=== PATIENT | male | born 1950 | race Caucasian/White ===

== ENCOUNTER 2017-10-07 20:33 | Inpatient (IN) ==
--- NOTE | 2017-10-07 21:05 | Emergency Department Note ---
START Narrative - START START: I examined this patient and my medical decision-making was reviewed with the Resident Physician. I agree with the documented findings, disposition and treatment plan as described except to the extent set forth below. 67-year-old male presents to the ER from the [place] urgent care for concerns for an EKG abnormality. Patient was sitting at home eating eggs and qureshi and potatoes when he was having some abdominal pain. States the pain left him to where he thought he was going to pass out. He had associated nausea and. No vomiting. States he felt like he was given throw up. Patient which the [place] and they noticed heart rate to be in the 30s and he did state that he felt extremely weak and horrible at that time. His EKG is concerning for a Mobitz type II possibility. I feel it best that we should admit him to the hospital and have a cardiac consult done. Patient seems to be back to his baseline now. He has no further abdominal pain. In fact he states most the pain in his abdomen went away after getting to the urgent care. He has no abdominal pain whatsoever at this time. He has no documented history of any gallstone problems. Denies any diarrhea. No fevers or chills.
[2017-10-07 21:23] LABS: Basophils # 0.1 K/mcL (0.0-0.2); Basophils % 0.8 %; Eosinophils # 0.1 K/mcL (0.0-0.6); Eosinophils % 0.9 %; Hematocrit 43.9 % (37.5-50.1); Hemoglobin 15.4 g/dL (12.9-16.9); Immature Granulocytes % 0.3 % (0-4); Lymphocytes # 1.1 K/mcL (0.6-4.6); Lymphocytes % 17.9 %; Mean Corpuscular HGB Conc 35.1 g/dL (31.6-35.5); Mean Corpuscular Hemoglobin 32.4 pg (28.0-33.3); Mean Corpuscular Volume 92.4 fL (83.0-100.0); Monocytes # 0.4 K/mcL (0.0-1.3); Monocytes % 6.8 %; Neutrophils # 4.7 K/mcL (1.6-8.9); Platelet Count 144 K/mcL (140-400); Red Blood Count 4.75 M/mcL (4.19-5.50); Segmented Neutrophils % 73.3 %
[2017-10-07 21:39] LABS: Alanine Aminotransferase 15 Units/L (7-52); Albumin 4.2 g/dL (3.5-5.7); Albumin/Globulin Ratio 1.4 (1.1-2.2); Alkaline Phosphatase 46 Units/L (34-104); Aspartate Amino Transferase 28 Units/L (13-39); BUN/Creatinine Ratio 17 (6-26); Bilirubin,Direct 0.1 mg/dL (0.0-0.2); Bilirubin,Indirect 0.4 mg/dL (0.0-1.2); Bilirubin,Total 0.5 mg/dL (0.3-1.0); Blood Urea Nitrogen 17 mg/dL (8-23); Calcium 9.9 mg/dL (8.6-10.3); Carbon Dioxide 32 mEq/L (23-29); Chloride 106 mEq/L (98-107); Globulin 2.9 g/dL (2.4-3.5); Glucose 164 mg/dL (70-105); Lipase 53 Units/L (11-82); Osmolality,Calculated 295 (280-300); Potassium 4.5 mEq/L (3.5-5.1); Sodium 140 mEq/L (136-145); Total Protein 7.1 g/dL (6.4-8.9); eGFR For African Americans > 60 (> 60); eGFR For Non-African Americans > 60 (> 60)
--- NOTE | 2017-10-07 22:07 | Emergency Department Note ---
Disposition Clinical Impression: Bradycardia Disposition: Admitted As Inpatient Condition: Good Referrals: NONE,PCP [Primary Care Provider] - Forms: ED Satisfaction Letter, Work/School Release Time of Disposition: 22:07 General Adult HPI - General Chief complaint: ED General Medical Stated complaint: IRREGULAR HR Time Seen by Provider: 10/07/17 20:37 Source: patient Mode of arrival: EMS Limitations: no limitations Nursing Notes Reviewed: Yes Vital Signs Reviewed: Yes - History of Present Illness HPI Narrative: Patient is a 67-year-old male with a history of a heart catheter done in 2003 that showed no blockage at that time and tachycardia which is treated with atenolol presenting to the emergency department from the urgent care [place] for bradycardia and abdominal pain. The patient was sitting at home this evening with his he finished eating his meal and he experienced intense sharp stabbing abdominal pain that caused him to become profusely sweaty and nauseous. At that time the patient is drove him to the [place] urgent care which is found to be bradycardic in the 30s. The patient was then transferred to a [place]. On arrival to the emergency department here the patient is a symptomatically his symptoms had resolved. Patient denies any chest pain, shortness of breath, vomiting, abdominal pain at this time, nausea, vomiting, diarrhea. Pain Scale: 0 - Related Data Home Medications Medication Instructions Recorded Confirmed Acetaminophen [Tylenol] 1,000 mg PO Q12H MDD 3 gm 10/07/17 10/07/17 Atenolol [Tenormin] 50 mg PO BID 10/07/17 10/07/17 Cholecalciferol (D-3) [Vitamin D] 2,000 unit PO DAILY 10/07/17 10/07/17 Dicyclomine [Bentyl] 10 mg PO QID 10/07/17 10/07/17 Fluticasone Propionate Nasal 50 mcg NS DAILY 10/07/17 10/07/17 [Flonase] Hydrocortisone 2.5% CREAM [Cortaid] 1 appl TP BID PRN 10/07/17 10/07/17 Ranitidine HCl [Zantac] 150 mg PO BID 10/07/17 10/07/17 Sildenafil Citrate [Viagra] 50 mg PO AD PRN 10/07/17 10/07/17 Simvastatin [Zocor] 20 mg PO HS 10/07/17 10/07/17 Terbinafine HCl [Terbinafine] 1 appl TP BID PRN 10/07/17 10/07/17 Valproic Acid 500 mg PO BID 10/07/17 10/07/17 diazePAM [Valium] 5 mg PO BID PRN 10/07/17 10/07/17 Allergies Allergy/AdvReac Type Severity Reaction Status Date / Time epinephrine AdvReac See Verified 10/07/17 21:43 Comments All systems ED: reviewed and negative except as stated. Constitutional: Denies: fever, chills ENT ED: Denies: throat pain, congestion Cardiovascular: Denies: chest pain, palpitations, dyspnea on exertion, syncope, paroxysmal nocturnal dyspnea Respiratory: Denies: cough, dyspnea, wheezes Gastrointestinal: Reports: abdominal pain, nausea. Denies: vomiting, diarrhea, constipation, hematemesis, melena, hematochezia Genitourinary: Denies: urgency Musculoskeletal: Denies: back pain, neck pain Integumentary: Denies: rash, abrasion Neurological: Denies: headache, weakness Past Medical History - Past Medical History Attestation: Yes The following information was validated with the patient. Medical history: Reports: GERD, hyperlipidemia, hypertension, myocardial infarction Psychiatric history: Reports: anxiety, depression, PTSD - Social History Smoking Status: Current every day smoker Smokeless Tobacco Status: No Alcohol use: Reports: occasionally Drug use: Reports: none Physical Exam CONSTITUTIONAL: Well-appearing; well-nourished; A&O X 3, in no apparent distress. Patient's vital signs are currently stable his heart rate is in the 70s, blood pressure is 110s/80s. Patient currently has transcutaneous spacer pads on his on cardiac monitoring. HEAD: Normocephalic; atraumatic EYES: PERRL, no scleral icterus NOSE: The nose is normal in appearance without rhinorrhea NECK: No JVD or distended neck veins RESP: Normal chest excursion with respiration; breath sounds clear and equal bilaterally; no wheezes, rhonchi, or rales CARD: Regular rhythm, without murmurs, rub or gallop ABD: Non-distended; non-tender, soft, without rigidity, rebound or guarding,no pulsatile mass CHEST: No pain with palpation SKIN: Normal for age and race; warm and dry without diaphoresis ; no apparent lesions EXTREMITIES: Pulses are 2 plus and equal times 4 extremities, no peripheral edema or calf muscle pain - General Limitations: no limitations General appearance: alert, in no apparent distress Course Course Narrative: The patient is presenting to the emergency department with the complaint of bradycardia that occurred after a sudden sharp stabbing epigastric abdominal pain. At this time the patient is asymptomatic and he states that his symptoms have completely resolved. His vital signs are stable in the room, however transcutaneous pacer pads have been applied to the patient's chest. The patient 's EKG shows a possible Mobitz type II degree heart block appears to be dropping a third beat. I discussed this patient's case with she states there is no further mention needed at this time they will see the patient and patient in the morning. Patient was accepted to the hospital by Dr. Guerrero. His lab work was essentially unremarkable and chest x-ray was negative. - Reevaluation(s) Reevaluation #1: Dr. Guerrero and Dr. Zacarias consulted. Time: 22:06 Vital Signs Temperature 97.5 F L 10/07/17 20:35 Pulse Rate 71 10/07/17 20:35 Respiratory Rate 22 10/07/17 20:35 Blood Pressure 111/80 10/07/17 20:35 O2 Sat by Pulse Oximetry 92 10/07/17 20:35 Temperature 97.5 F L 10/07/17 20:35 Pulse Rate 61 10/07/17 23:10 Respiratory Rate 18 10/07/17 23:10 Blood Pressure 121/63 10/07/17 23:10 O2 Sat by Pulse Oximetry 97 10/07/17 23:10 Oxygen Delivery Oxygen Delivery Room Air Medical Decision Making - Medical Records Medical records reviewed: Yes I reviewed the patient's medical records. - Lab Data Lab results reviewed: Yes I reviewed the patient's lab results. Result diagrams: 10/07/17 21:07 10/07/17 21:07 Lab Results 10/07/17 10/07/17 10/07/17 Range/Units 21:07 21:07 21:07 WBC 6.4 (4.3-11.1) K/mcL RBC 4.75 (4.19-5.50) M/mcL Hgb 15.4 (12.9-16.9) g/dL Hct 43.9 (37.5-50.1) % MCV 92.4 (83.0-100.0) fL MCH 32.4 (28.0-33.3) pg MCHC 35.1 (31.6-35.5) g/dL RDW 12.0 (11.5-14.5) % Plt Count 144 (140-400) K/mcL MPV 10.0 (9.4-12.4) fL Immature Gran % 0.3 (0-4) % Seg Neutrophils % 73.3 % Lymphocytes % 17.9 % Monocytes % 6.8 % Eosinophils % 0.9 % Basophils % 0.8 % Neutrophils # 4.7 (1.6-8.9) K/mcL Lymphocytes # 1.1 (0.6-4.6) K/mcL Monocytes # 0.4 (0.0-1.3) K/mcL Eosinophils # 0.1 (0.0-0.6) K/mcL Basophils # 0.1 (0.0-0.2) K/mcL Sodium 140 (136-145) mEq/L Potassium 4.5 (3.5-5.1) mEq/L Chloride 106 (98-107) mEq/L Carbon Dioxide 32 H (23-29) mEq/L BUN 17 (8-23) mg/dL Creatinine 1.03 (0.70-1.30) mg/dL Est GFR ( Amer) > 60 (> 60) Est GFR (Non-Af Amer) > 60 (> 60) BUN/Creatinine Ratio 17 (6-26) Glucose 164 H (70-105) mg/dL Calculated Osmolality 295 (280-300) Calcium 9.9 (8.6-10.3) mg/dL Magnesium 2.0 (1.6-2.6) mg/dL Total Bilirubin 0.5 (0.3-1.0) mg/dL Direct Bilirubin 0.1 (0.0-0.2) mg/dL Indirect Bilirubin 0.4 (0.0-1.2) mg/dL AST 28 (13-39) Units/L ALT 15 (7-52) Units/L Alkaline Phosphatase 46 (34-104) Units/L Troponin I < 0.03 (< 0.04) ng/mL Serum Total Protein 7.1 (6.4-8.9) g/dL Albumin 4.2 (3.5-5.7) g/dL Globulin 2.9 (2.4-3.5) g/dL Albumin/Globulin Ratio 1.4 (1.1-2.2) Lipase 53 (11-82) Units/L 10/07/17 Range/Units 22:42 WBC (4.3-11.1) K/mcL RBC (4.19-5.50) M/mcL Hgb (12.9-16.9) g/dL Hct (37.5-50.1) % MCV (83.0-100.0) fL MCH (28.0-33.3) pg MCHC (31.6-35.5) g/dL RDW (11.5-14.5) % Plt Count (140-400) K/mcL MPV (9.4-12.4) fL Immature Gran % (0-4) % Seg Neutrophils % % Lymphocytes % % Monocytes % % Eosinophils % % Basophils % % Neutrophils # (1.6-8.9) K/mcL Lymphocytes # (0.6-4.6) K/mcL Monocytes # (0.0-1.3) K/mcL Eosinophils # (0.0-0.6) K/mcL Basophils # (0.0-0.2) K/mcL Sodium (136-145) mEq/L Potassium (3.5-5.1) mEq/L Chloride (98-107) mEq/L Carbon Dioxide (23-29) mEq/L BUN (8-23) mg/dL Creatinine (0.70-1.30) mg/dL Est GFR ( Amer) (> 60) Est GFR (Non-Af Amer) (> 60) BUN/Creatinine Ratio (6-26) Glucose (70-105) mg/dL Calculated Osmolality (280-300) Calcium (8.6-10.3) mg/dL Magnesium (1.6-2.6) mg/dL Total Bilirubin (0.3-1.0) mg/dL Direct Bilirubin (0.0-0.2) mg/dL Indirect Bilirubin (0.0-1.2) mg/dL AST (13-39) Units/L ALT (7-52) Units/L Alkaline Phosphatase (34-104) Units/L Troponin I < 0.03 (< 0.04) ng/mL Serum Total Protein (6.4-8.9) g/dL Albumin (3.5-5.7) g/dL Globulin (2.4-3.5) g/dL Albumin/Globulin Ratio (1.1-2.2) Lipase (11-82) Units/L - Radiology Data Radiology results reviewed: Yes I reviewed the patient's radiology results. Chest X-Ray 10/07/17 20:49 IMPRESSION: No acute cardiopulmonary disease. Moderate to large hiatal hernia. D/ / Zander Orantes MD / Zander Orantes MD Interpreting Provider: Zander Orantes MD - EKG Data EKG #1 EKG attestation: Yes I reviewed and interpreted this EKG. EKG shows normal: sinus rhythm Rate: normal Rhythm: other (Mobitz Type 2 ) Matthews/QRS: normal Heart block present: Mobitz 2 When compared to previous EKG there are: previous EKG unavailable
[2017-10-07] MEDS ORDERED: diazePAM 5 MG TABLET PO PRN (22:26)
[2017-10-07] MEDS ORDERED: Naloxone 0.4 MG/ML INJ IVP PRN ×2 (22:26→22:29)
[2017-10-07] MEDS ORDERED: 0.9 % Sodium Chloride 1,000 ML IVC SCH (22:30)
--- NOTE | 2017-10-07 22:37 | Internal Med History&Physical ---
Date of Encounter: 10/07/17 Time of Encounter: 22:33 Assessment and Plan (1) Bradycardia Current visit: Yes Status: Acute hold atenolol likely had symptomatic bradycardia at the [place] but got better by itself D/w ED who is awaiting card call back will admit with tele and close monitoring overnight check TSH, FT4 (2) Hiatal hernia Current visit: Yes Status: Acute could have attributed to GI symptoms with increased food ? monitor for now, outpatient surgery eval and follow up (3) HLD (hyperlipidemia) Current visit: Yes Status: Acute statin Qualifiers: Hyperlipidemia type: pure hypercholesterolemia Qualified Code(s): E78.00 - Pure hypercholesterolemia, unspecified; E78.0 - Pure hypercholesterolemia Internal Medicine - H&P: HPI Chief complaint: upper abdo pain, followed by nausea, sweating, dizziness, pale History of present illness: Mr. Nelson is a 67 year old male with a hx of fast HR on atenolol for more than 20 years now who presents with what appeared to be symptomatic bradycardia. He was at home eating dinner and shortly after dinner at around 515-530, developed upper abdo pain which he says is from over eating. He went to the [place] where his HR was noted to be in the mid 30s which slowly came up to the 50s without intervention. This co-incided with symptoms of nausea, sweating, dizziness and looking pale for at bedside. EKG there in the [place] noted rate 52 with possible morbitz II ??. His symptoms improved on transfered to [facility]. At present, his symptoms have resolved. He is being admitted for cardiac eval of possible tachy-jayme syndrome ? On review, he reports that this symptom happened once a year ago where he went to the [facility] where an NGT was placed for "over eating ". XR/XR chest 1V portable IMPRESSION: No acute cardiopulmonary disease. Moderate to large hiatal hernia. Past Med Surg Social Fam HX - Past Medical History Medical history: GERD, hyperlipidemia, hypertension, myocardial infarction Psychiatric history: anxiety, depression, PTSD - Social History Smoking Status: Current every day smoker Smokeless Tobacco Status: No Alcohol use: occasionally Drug use: none Internal Medicine - H&P: Meds Acetaminophen [Tylenol] 1,000 mg PO Q12H MDD 3 gm 10/07/17 [History] Atenolol [Tenormin] 50 mg PO BID 10/07/17 [History] Cholecalciferol (D-3) [Vitamin D] 2,000 unit PO DAILY 10/07/17 [History] Dicyclomine [Bentyl] 10 mg PO QID 10/07/17 [History] Fluticasone Propionate Nasal [Flonase] 50 mcg NS DAILY 10/07/17 [History] Hydrocortisone 2.5% CREAM [Cortaid] 1 appl TP BID PRN 10/07/17 [History] Ranitidine HCl [Zantac] 150 mg PO BID 10/07/17 [History] Sildenafil Citrate [Viagra] 50 mg PO AD PRN 10/07/17 [History] Simvastatin [Zocor] 20 mg PO HS 10/07/17 [History] Terbinafine HCl [Terbinafine] 1 appl TP BID PRN 10/07/17 [History] Valproic Acid 500 mg PO BID 10/07/17 [History] diazePAM [Valium] 5 mg PO BID PRN 10/07/17 [History] 3 Allergy/AdvReac Type Severity Reaction Status Date / Time epinephrine AdvReac See Verified 10/07/17 21:43 Comments All Systems PM: A 10-system review of systems was performed and is negative for pertinent findings except as documented above in the HPI. Review of systems: ROS 14 point review of systems reviewed as best as possible given presentation. Pertinent positive or negative as per HPI or otherwise reviewed as negative - Constitutional Vitals: Temp Pulse Resp BP Pulse Ox 97.5 F L 61 20 111/67 96 10/07/17 20:35 10/07/17 22:15 10/07/17 22:15 10/07/17 22:15 10/07/17 22:15 Exam: General - AAO x 3 Psych - Appropriate affect/speech. No agitation Eyes - CR. Eye lids intact. No scleral icterus Heart - Sinus. RRR. S1 and S2 present. No added HS/murmurs appreciated. No elevated JVD appreciated. Lung - Adequate air entry b/l, No crackles/wheezes appreciated GI - Soft, non-tender. No hepatosplenomegaly/ascites. BS+ - No CVA/suprapubic tenderness or palpable bladder distension Skin - Intact. No rash/petechiae/ecchymosis. Warm extremities Internal Med - H&P Results - Labs CBC & Chem 7: 10/07/17 21:07 10/07/17 21:07 Labs: Short CBC 10/07/17 Range/Units 21:07 WBC 6.4 (4.3-11.1) K/mcL Hgb 15.4 (12.9-16.9) g/dL Hct 43.9 (37.5-50.1) % Plt Count 144 (140-400) K/mcL Neutrophils # 4.7 (1.6-8.9) K/mcL BMP 10/07/17 21:07 Sodium 140 Potassium 4.5 Chloride 106 Carbon Dioxide 32 H BUN 17 Creatinine 1.03 Glucose 164 H Calcium 9.9 Cardiac Enzymes 10/07/17 Range/Units 21:07 Troponin I < 0.03 (< 0.04) ng/mL Liver Function 10/07/17 Range/Units 21:07 Total Bilirubin 0.5 (0.3-1.0) mg/dL Direct Bilirubin 0.1 (0.0-0.2) mg/dL AST 28 (13-39) Units/L ALT 15 (7-52) Units/L Alkaline Phosphatase 46 (34-104) Units/L Albumin 4.2 (3.5-5.7) g/dL - Impressions ITS Impressions Chest X-Ray 10/07/17 20:49 IMPRESSION: No acute cardiopulmonary disease. Moderate to large hiatal hernia. D/ / Zander Orantes MD / Zander Orantes MD Interpreting Provider: Zander Orantes MD
[2017-10-08 05:30] LABS: Basophils % 0.7 %; Eosinophils # 0.1 K/mcL (0.0-0.6); Eosinophils % 2.6 %; Hemoglobin 13.2 g/dL (12.9-16.9); Immature Granulocytes % 0.2 % (0-4); Immature Platelets 3.9 % (1.1-6.1); Lymphocytes # 1.6 K/mcL (0.6-4.6); Lymphocytes % 30.1 %; Mean Corpuscular HGB Conc 33.8 g/dL (31.6-35.5); Mean Corpuscular Hemoglobin 31.9 pg (28.0-33.3); Mean Corpuscular Volume 94.2 fL (83.0-100.0); Mean Platelet Volume 10.4 fL (9.4-12.4); Monocytes # 0.6 K/mcL (0.0-1.3); Platelet Count 128 K/mcL (140-400); Red Blood Count 4.14 M/mcL (4.19-5.50); Red Cell Distribution Width 12.1 % (11.5-14.5); Segmented Neutrophils % 55.4 %
[2017-10-08 05:44] LABS: BUN/Creatinine Ratio 18 (6-26); Blood Urea Nitrogen 17 mg/dL (8-23); Calcium 8.9 mg/dL (8.6-10.3); Carbon Dioxide 29 mEq/L (23-29); Chloride 111 mEq/L (98-107); Glucose 108 mg/dL (70-105); Magnesium 1.9 mg/dL (1.6-2.6); Osmolality,Calculated 296 (280-300); Potassium 4.5 mEq/L (3.5-5.1); Sodium 142 mEq/L (136-145); eGFR For African Americans > 60 (> 60); eGFR For Non-African Americans > 60 (> 60)
[2017-10-08] MEDS ORDERED: *HR* Enoxaparin 30 MG/0.3 ML SYRINGE SQ SCH (06:00)
[2017-10-08 06:09] LABS: Thyroid Stimulating Hormone 1.233 mcIU/mL (0.340-5.600)
[2017-10-08] MEDS ORDERED: Famotidine 20 MG TABLET PO SCH (07:30)
[2017-10-08] MEDS: Fluticasone Propionate Nasal 50 MCG/SPRAY BOTTLE NS SCH ×2 (08:19→11:45)
[2017-10-08] MEDS ORDERED: Cholecalciferol (D-3) 1,000 UNIT TABLET PO SCH (09:00)
[2017-10-08] MEDS ORDERED: Valproic Acid 250 MG CAPSULE PO SCH (09:00)
--- NOTE | 2017-10-08 09:43 | Cardiology Consult Note ---
<Anatoly Huber - Last Filed: 10/08/17 12:57> Date of Encounter: 10/08/17 Time of Encounter: 09:40 Assessment and Plan (1) Bradycardia Current Visit: Yes Status: Acute Per Cardiology: Symptoms seemed to have correlated with nausea and abdominal discomfort. Suspect potential vasovagal. Unfortunately, no rhythm strips or [facility] Will obtain ECG today. Telemetry reviewed with average heart rate 53 and shows sinus bradycardia to sinus rhythm with blocked PACs. No significant events or heart block noted. Echo showed LVEF 60%.Moderate left ventricular diastolic dysfunction, Mild-moderate aortic regurgitation, NSWMA. Takes atenolol 50 mg by mouth twice a day at home-- currently off in heart rates in the 50s and systolic blood pressures in the 100s. Discussed with Dr. Meek, recommend two-week event monitor at discharge. No further recommendations. Cardiology will sign off, reconsult as needed, follow up as outpatient scheduled. (2) Nausea Current Visit: Yes Status: Acute Per Cardiology: Resolved-- occurred with high fat foods and excessive intake. Suspect symptoms GERD related. Denied any chest pain. Troponins negative x 4. Discussion w patient/family: The assessment and plan as outlined above was discussed with the patient and/or family members who expressed understanding and agreement. All questions were answered. Thank you for involving us in the care of your patient. Please call with any questions. History of Present Illness Consult date: 10/08/17 Requesting physician: Julia Guerrero Consult reason: Bradycardia Chief complaint: Abdominal bloating, nausea History of present illness: Mr. Nelson is a 67 year old male with a relevant past medical history of nicotine abuse, hypertension, hyperlipidemia, GERD, CAD. Cardiology consult for bradycardia. Patient seen with at bedside. Reports his normal state of health until yesterday evening. He reports he ate qureshi, fried potatoes, and scrambled eggs. He admits he over ate and she had a second helping. He reports about 10-15 minutes later he developed abdominal discomfort with bloating. He developed abdominal tenderness with nausea and diaphoresis. He denied any vomiting. Denies any fever, chills, diarrhea. He is insistent he did not experience any chest pain. He reports symptoms currently resolved. He reports on beta vicky at home for "his heart rate". He denies any history of atrial fibrillation and takes aspirin only. Prior to this event he denies any dizziness, syncopal, falls. Reports catheterization many years ago with "no blockages ". Denies ICD or pacemaker. Past Med Surg Social Fam HX - Past Medical History Attestation: Yes The following information was validated with the patient. Source: patient, old records reviewed, obtained from family Medical history: GERD, hyperlipidemia, hypertension, myocardial infarction Psychiatric history: anxiety, depression, PTSD - Social History Smoking Status: Current every day smoker Smokeless Tobacco Status: No Alcohol use: occasionally Drug use: none - Family History Mother Name: joyce nelson Age: 85 Hx Family Cardiac Disorders: Yes (mi) Medications and Allergies Acetaminophen [Tylenol] 1,000 mg PO Q12H MDD 3 gm 10/07/17 [History] Cholecalciferol (D-3) [Vitamin D] 2,000 unit PO DAILY 10/07/17 [History] Dicyclomine [Bentyl] 10 mg PO QID 10/07/17 [History] Fluticasone Propionate Nasal [Flonase] 50 mcg NS DAILY 10/07/17 [History] Hydrocortisone 2.5% CREAM [Cortaid] 1 appl TP BID PRN 10/07/17 [History] Ranitidine HCl [Zantac] 150 mg PO BID 10/07/17 [History] Sildenafil Citrate [Viagra] 50 mg PO AD PRN 10/07/17 [History] Simvastatin [Zocor] 20 mg PO HS 10/07/17 [History] Terbinafine HCl [Terbinafine] 1 appl TP BID PRN 10/07/17 [History] Valproic Acid 500 mg PO BID 10/07/17 [History] diazePAM [Valium] 5 mg PO BID PRN 10/07/17 [History] Atenolol [Tenormin] 25 mg PO DAILY #30 tablet 10/08/17 [Rx] 3 Allergy/AdvReac Type Severity Reaction Status Date / Time epinephrine AdvReac See Verified 10/07/17 21:43 Comments All Systems Review: A 10-system review of systems was performed and is negative for pertinent findings except as documented above in the HPI. - Cardiovascular Cardiovascular: as per HPI, diaphoresis - Gastrointestinal Gastrointestinal: abdominal pain, nausea Physical Examination Vital Signs, Last 4 Hours Temp Pulse Resp BP Pulse Ox 10/08/17 07:22 97.8 F 53 16 108/66 97 General: Conversant, No Apparent Distress HEENT: Atraumatic, Normocephaly, Mucus Membranes Moist Neck: No JVD, Normal carotid pulses Cardiac: Reg Rate and Rhythm, Normal S1 and S2, No Murmur Lungs: Normal Breath Sounds, No Wheeze, Rales, Rhonchi Neuro: Alert and responsive, No focal deficits noted Abdomen: Soft, Non-Tender Skin: No rashes noted on visualized skin Musculoskeletal: No Chest Wall Tenderness Extremities: No Clubbing, No Cyanosis, No Edema, Normal Pulses Results 10/08/17 04:45 10/08/17 04:45 Lab Results Laboratory Tests 10/07/17 10/07/17 10/07/17 21:07 21:07 22:42 Magnesium AST 28 ALT 15 Troponin I < 0.03 < 0.03 TSH 10/08/17 10/08/17 04:45 04:45 Magnesium 1.9 AST ALT Troponin I < 0.03 TSH 1.233 ITS Impressions Chest X-Ray 10/07/17 20:49 IMPRESSION: No acute cardiopulmonary disease. Moderate to large hiatal hernia. D/ / Zander Orantes MD / Zander Orantes MD Interpreting Provider: Zander Orantes MD Intake & Output 10/05/17 10/06/17 10/07/17 10/08/17 23:59 23:59 23:59 23:59 Intake Total 0 / 0 Output Total 275 / 275 Balance -275 / -275 Weight 85.275 kg 82.6 kg Active Medications Acetaminophen (Tylenol) 1,000 mg PO Q12H PRN PRN Reason: Breakthrough Pain Stop: 04/08/18 22:31 Diazepam (Valium) 5 mg PO BID PRN PRN Reason: Anxiety Stop: 04/08/18 22:27 Dicyclomine HCl (Bentyl) 10 mg PO QID BHUMI Stop: 04/09/18 09:01 Last Admin: 10/08/17 08:12 Dose: 10 mg Enoxaparin Sodium (Lovenox) 30 mg SQ 0600 BHUMI PRN Reason: Protocol Stop: 04/09/18 06:01 Last Admin: 10/08/17 05:34 Dose: 30 mg Famotidine (Pepcid) 20 mg PO BIDAC BHUMI Stop: 04/09/18 07:31 Last Admin: 10/08/17 08:12 Dose: 20 mg Fluticasone Propionate (Flonase) 50 mcg NS DAILY BHUMI PRN Reason: Protocol Stop: 04/09/18 09:01 Last Admin: 10/08/17 08:19 Dose: Not Given Naloxone HCl (Narcan) 0.4 mg IVP Q2MIN PRN PRN Reason: Opioid Reversal Stop: 04/08/18 22:27 Naloxone HCl (Narcan) 0.4 mg IVP Q2MIN PRN PRN Reason: Opioid Reversal Stop: 04/08/18 22:30 Simvastatin (Zocor) 20 mg PO HS BHUMI PRN Reason: Protocol Stop: 04/09/18 21:01 Valproic Acid (Depakene) 500 mg PO BID BHUMI Stop: 04/09/18 09:01 Last Admin: 10/08/17 08:12 Dose: 500 mg Vitamin D (Vitamin D) 2,000 unit PO DAILY [facility] Stop: 04/09/18 09:01 Last Admin: 10/08/17 08:12 Dose: 2,000 unit ECHO 10/08/17: Impressions: LVEF 60%. Moderate left ventricular diastolic dysfunction. Normal right ventricular structure and function. Mild-moderate aortic regurgitation. Mild tricuspid regurgitation. Mild pulmonary hypertension. Ascending aorta is not well visualized. Left Ventricular Wall Motion: Rest Echo Findings All wall segments showed normal motion. - Imaging and Cardiology Chest Xray: pending Echo: report reviewed - EKG Interpretation EKG results cardiology: other (No 12-lead ECG available for review, telemetry strips showed sinus rhythm in the 50s, no [facility] noted, 24-hour telemetry reviewed with average heart rate 53, sinus rhythm/sinus bradycardia with blocked PACs, no significant events noted) Consult Discharge Plan - Plan Referrals: NONE,PCP [Primary Care Provider] - (in 1-2 weeks) Kwasi Meek [Partnered Physician] - (1-2 weeks) Prescriptions: Atenolol [Tenormin] 25 mg PO DAILY #30 tablet <Kwasi Meek - Last Filed: 10/08/17 13:52> Date of Encounter: 10/08/17 - Attending Attestation I have personally performed a face to face evaluation on this patient. I have reviewed and agree with the care plan. History and Exam by me shows: 67 [facility]OM [facility] No documentation of bradycardia on telemtry strips Patient off BB with SBP 100mmHg and rates above 50 bpm No conduction abnormalities noted or arrythmias Plan 2 week event monitor as an OP Substitute BB with alternative non rate controlling as needed (currently SBP 100 's) If recurrent discomfort consider ischemic work up as an OP Assessment and Plan Discussion w patient/family: The assessment and plan as outlined above was discussed with the patient and/or family members who expressed understanding and agreement. All questions were answered. Thank you for involving us in the care of your patient. Please call with any questions. History of Present Illness History of present illness: Mr. Nelson is a 67 year old male All Systems Review: A 10-system review of systems was performed and is negative for pertinent findings except as documented above in the HPI. Physical Examination Vital Signs, Last 4 Hours Temp Pulse Resp BP Pulse Ox 10/08/17 12:18 98.9 F 54 15 103/63 94 Results 10/08/17 04:45 10/08/17 04:45 Lab Results 10/08/17 10/08/17 10/08/17 04:45 04:45 04:45 WBC 5.3 Hgb 13.2 D Hct 39.0 Plt Count 128 L Sodium 142 Potassium 4.5 Chloride 111 H Carbon Dioxide 29 BUN 17 Creatinine 0.95 Glucose 108 H Calcium 8.9 Magnesium 1.9 Troponin I < 0.03 TSH 1.233 10/08/17 10:14 WBC Hgb Hct Plt Count Sodium Potassium Chloride Carbon Dioxide BUN Creatinine Glucose Calcium Magnesium Troponin I < 0.03 TSH
[2017-10-08 12:20] VITALS: BP 103/63
--- NOTE | 2017-10-08 13:23 | Discharge Summary ---
Date of Encounter: 10/08/17 Time of Encounter: 13:20 - Discharge Diagnosis (1) Bradycardia Priority: Primary Status: Acute (2) Hiatal hernia Priority: Secondary Status: Chronic (3) HLD (hyperlipidemia) Priority: Secondary Status: Chronic Qualifiers: Hyperlipidemia type: pure hypercholesterolemia Qualified Code(s): E78.00 - Pure hypercholesterolemia, unspecified; E78.0 - Pure hypercholesterolemia (4) Nausea Priority: Secondary Status: Acute - Discharge Medications Prescriptions: Lisinopril [Zestril] 5 mg PO DAILY #30 tablet Home Medications: Acetaminophen [Tylenol] 1,000 mg PO Q12H MDD 3 gm 10/07/17 [History] Cholecalciferol (D-3) [Vitamin D] 2,000 unit PO DAILY 10/07/17 [History] Dicyclomine [Bentyl] 10 mg PO QID 10/07/17 [History] Fluticasone Propionate Nasal [Flonase] 50 mcg NS DAILY 10/07/17 [History] Hydrocortisone 2.5% CREAM [Cortaid] 1 appl TP BID PRN 10/07/17 [History] Ranitidine HCl [Zantac] 150 mg PO BID 10/07/17 [History] Sildenafil Citrate [Viagra] 50 mg PO AD PRN 10/07/17 [History] Simvastatin [Zocor] 20 mg PO HS 10/07/17 [History] Terbinafine HCl [Terbinafine] 1 appl TP BID PRN 10/07/17 [History] Valproic Acid 500 mg PO BID 10/07/17 [History] diazePAM [Valium] 5 mg PO BID PRN 10/07/17 [History] Lisinopril [Zestril] 5 mg PO DAILY #30 tablet 10/08/17 [Rx] Allergies/Adverse Reactions: 3 Allergy/AdvReac Type Severity Reaction Status Date / Time epinephrine AdvReac See Verified 10/07/17 21:43 Comments Procedures/tests Complete & Pending: Procedures Performed prior 72 hours Category Date Time Status ECG event monitor 2 weeks [ECG] Routine Y 10/08/17 13:05 Ordered EV echocardiogram Routine Y 10/08/17 09:47 Completed Date of admission: 10/08/17 01:10 Primary care physician: PCP NONE Consults: 10/07/17 22:30 Consult to Cardiology [CONS] Routine Comment: Consulting Provider: Cardiology Charmaine Reason for Consult: symptomatic bradycardia, hx of tachy on atenolol many years ago Call Completed: No Discharging clinician: Mario Coyne Anticipated date of discharge: 10/08/17 - Patient Status Disposition: Home, Self-Care Condition: Good Functional capacity at discharge: independent ambulation Overall status at discharge: patient is progressing back to baseline - Discharge Instructions Follow Up With: NONE,PCP [Primary Care Provider] - () [facility] [Non-[facility] Physician] - 10/22/17 11:00 am ([facility]. ) Kwasi Meek [Partnered Physician] - (Office is to call PT with a follow up appointment. ) - Diet and Activity Activity: increase activity as tolerated, resume usual activities as tolerated Diet: low fat, low cholesterol, low salt diet Hospital course: Mr. Nelson is a 67 year old male patient with history of hypertension, hyperlipidemia, hiatal hernia, PA presented to the ER with complaints of abdominal discomfort and bloating along with nausea and diaphoresis. In the ER he was noted to have bradycardia with a heart rate in the mid 30s. This slowly improved without any intervention to the low 50s where the patient says he normally is at. He was placed here for observation due to his episodes of symptomatic bradycardia. Since his hospitalization here, he has not had any further episodes of symptomatic bradycardia. His heart rate has been persistently in the 50s. His atenolol has been held. Cardiology has evaluated the patient and believe his symptoms could be vasovagal related due to its occurrence after the patient ate and its association with symptoms of nausea and abdominal bloating. Patient does have a history of hiatal hernia which is being followed as outpatient. Presently patient is doing much better. He is awake alert oriented. Not complaining of any dizziness or lightheadedness. At this point, he is stable to be discharged home. Cardiology recommends stopping atenolol for now. He will also be placed on an event monitor for the next 2 weeks will follow up with cardiology for further management as outpatient. A 2-D echocardiogram was done here which showed that the patient had an EF of 60 % with moderate left ventricle diastolic dysfunction. - Time Spent with Patient Total time spent providing and/or coordinating discharge services: Less than 30 minutes (25 min) - Constitutional Vitals: Temp Pulse Resp BP Pulse Ox 98.9 F 54 15 103/63 94 10/08/17 12:18 10/08/17 12:18 10/08/17 12:18 10/08/17 12:18 10/08/17 12:18 General appearance: Present: cooperative, A&O X 3, answers questions appropriately - Respiratory Respiratory exam: Present: CTAB. Absent: accessory muscle use, rales, rhonchi, wheezes - Cardiovascular Cardiovascular exam: Present: bradycardia, RRR, +S1, +S2. Absent: diastolic murmur, gallop, rubs, systolic murmur - GI/Abdominal GI/Abdominal exam: Present: normal bowel sounds, soft, no peritoneal signs. Absent: distended, tenderness - Extremities Exam Extremities exam: Present: warm, radial pulses palpable and symmetrical. Absent : calf tenderness, cyanotic, pedal edema - Neurological Exam Neurological exam: Present: CN II-XII intact, oriented X3, no focal deficits. Absent: facial droop, speech deficit - Skin Skin exam: Present: dry, intact
--- NOTE | 2017-10-08 15:25 | Electrocardiograph Report ---
[address] [address] Test Date: 2017-10-07 Pat Name: Caleb Nelson Department: 103 Room: [facility] Gender: Assistant Elementary Teacher: RADHA : 1950 Requested By: Daniel Webb Order Number: [id number] Reading MD: Brigitte Zacarias Measurements Intervals [place] Rate: 66 P: 84 DE: 166 QRS: 74 QRSD: 89 T: 52 QT: 371 QTc: 385 Interpretive Statements SINUS RHYTHM WITH FREQUENT SUPRAVENTRICULAR PREMATURE COMPLEXES ABNORMAL RHYTHM ECG Electronically Signed On 10-08-2017 15:23:45 EST by Brigitte Zacarias
== END 2017-10-08 16:19 | disposition home or self-care (01) | DRG 310 ==
LOC: EMEROO 20:33 → 3NENU 10-08 01:10
PROVIDERS: ADMIT Internal Medicine Hematology & Oncology; ATTEND Internal Medicine

== ENCOUNTER 2020-04-07 22:28 | Inpatient (IN) ==
[2020-04-07] MEDS ORDERED: Aspirin 81 MG TAB.CHEW PO ONE (22:33)
[2020-04-07 22:47] LABS: Basophils # 0.1 K/mcL (0.0-0.2); Basophils % 0.6 %; Eosinophils # 0.1 K/mcL (0.0-0.6); Eosinophils % 1.6 %; Hemoglobin 14.9 g/dL (12.9-16.9); Immature Granulocytes % 0.1 % (0-4); Lymphocytes # 1.2 K/mcL (0.6-4.6); Lymphocytes % 16.1 %; Mean Corpuscular HGB Conc 33.9 g/dL (31.6-35.5); Mean Corpuscular Hemoglobin 30.5 pg (28.0-33.3); Mean Corpuscular Volume 90.2 fL (83.0-100.0); Mean Platelet Volume 9.5 fL (9.4-12.4); Monocytes # 0.6 K/mcL (0.0-1.3); Monocytes % 7.1 %; Neutrophils # 5.7 K/mcL (1.6-8.9); Platelet Count 167 K/mcL (140-400); Red Blood Count 4.88 M/mcL (4.19-5.50); Red Cell Distribution Width 12.7 % (11.5-14.5); Segmented Neutrophils % 74.5 %; White Blood Count 7.7 K/mcL (4.3-11.1)
[2020-04-07 22:55] LABS: Prothrombin Time 11.9 Seconds (9.4-12.1)
[2020-04-07 22:58] LABS: Activated Partial Thrombo Time 33.5 Seconds (26.0-36.0)
[2020-04-07 23:14] LABS: BUN/Creatinine Ratio 15 (6-26); Blood Urea Nitrogen 14 mg/dL (8-23); Calcium 9.3 mg/dL (8.6-10.3); Carbon Dioxide 32 mEq/L (23-29); Chloride 97 mEq/L (98-107); Glucose 129 mg/dL (70-105); Osmolality,Calculated 288 (280-300); Potassium 3.6 mEq/L (3.5-5.1); Sodium 138 mEq/L (136-145); eGFR For African Americans > 60 (> 60); eGFR For Non-African Americans > 60 (> 60)
[2020-04-07 23:15] LABS: Troponin I < 0.03 ng/mL (< 0.04)
[2020-04-08] MEDS ORDERED: Naloxone 0.4 MG/ML INJ IVP PRN (00:34)
[2020-04-08] MEDS ORDERED: Isovue-370 500 ML BOTTLE IVP ONE (02:31)
[2020-04-08] MEDS ORDERED: Morphine Sulfate 2 MG/ML SYRINGE IVP PRN ×2 (02:36→05:34)
[2020-04-08] MEDS ORDERED: Ondansetron 4 MG/2 ML VIAL IVP PRN (02:45)
[2020-04-08] MEDS ORDERED: 0.9 % Sodium Chloride 1,000 ML IVC ONE (05:27)
[2020-04-08 06:11] LABS: Hematocrit 44.6 % (37.5-50.1); Hemoglobin 15.2 g/dL (12.9-16.9); Mean Corpuscular HGB Conc 34.1 g/dL (31.6-35.5); Mean Corpuscular Hemoglobin 30.5 pg (28.0-33.3); Mean Corpuscular Volume 89.6 fL (83.0-100.0); Mean Platelet Volume 9.6 fL (9.4-12.4); Platelet Count 159 K/mcL (140-400); Red Blood Count 4.98 M/mcL (4.19-5.50); Red Cell Distribution Width 12.7 % (11.5-14.5)
[2020-04-08 06:16] LABS: INR 1.1; Prothrombin Time 12.1 Seconds (9.4-12.1)
[2020-04-08 06:19] LABS: Activated Partial Thrombo Time 28.2 Seconds (26.0-36.0)
[2020-04-08 06:31] LABS: Albumin 4.1 g/dL (3.5-5.7); Albumin/Globulin Ratio 1.6 (1.1-2.2); Bilirubin,Direct 0.2 mg/dL (0.0-0.2); Bilirubin,Indirect 0.4 mg/dL (0.0-1.0); Bilirubin,Total 0.6 mg/dL (0.3-1.0); Globulin 2.6 g/dL (2.4-3.5); Total Protein 6.7 g/dL (6.4-8.9)
[2020-04-08 06:34] LABS: BUN/Creatinine Ratio 15 (6-26); Blood Urea Nitrogen 14 mg/dL (8-23); Calcium 9.5 mg/dL (8.6-10.3); Carbon Dioxide 28 mEq/L (23-29); Chloride 98 mEq/L (98-107); Glucose 126 mg/dL (70-105); Magnesium 1.3 mg/dL (1.6-2.6); Osmolality,Calculated 284 (280-300); Phosphorous 2.9 mg/dL (2.7-4.5); Potassium 3.6 mEq/L (3.5-5.1); Sodium 136 mEq/L (136-145); Troponin I < 0.03 ng/mL (< 0.04); eGFR For African Americans > 60 (> 60); eGFR For Non-African Americans > 60 (> 60)
[2020-04-08] MEDS: Piperacillin/Tazobactam 3.375 GM in 0.9 % Sodium Chloride Mini Bag 100 ML IVPB SCH ×2 (10:49→18:19)
[2020-04-08] MEDS ORDERED: Fluticasone Propionate Nasal 50 MCG/SPRAY BOTTLE NS PRN (14:21)
[2020-04-08] MEDS ORDERED: diazePAM 5 MG TABLET PO PRN (14:21)
[2020-04-08] MEDS ORDERED: Valproic Acid 250 MG CAPSULE PO SCH (17:00)
[2020-04-08] MEDS ORDERED: *HR* Propofol 200 MG/20 ML VIAL IVP ONE (21:08)
[2020-04-08] MEDS ORDERED: *HR* FentaNYL (PF) 100 MCG/2 ML VIAL ONE (21:08)
[2020-04-08] MEDS ORDERED: Lidocaine -MPF 4% 5 ML AMPUL ONE (21:08)
[2020-04-08] MEDS ORDERED: Lidocaine HCL 4 ML Topical Solution (Laryng-O-Jet Kit Sterile Pak) TP ONE (21:08)
[2020-04-08] MEDS ORDERED: *HR* Rocuronium Bromide 50 MG/5 ML VIAL ONE (21:08)
[2020-04-08] MEDS ORDERED: *HR* Meperidine 25 MG/ML SYRINGE IVP PRN (21:57)
[2020-04-08] MEDS ORDERED: *HR* HYDROmorphone PF 0.5 MG/0.5 ML SYRINGE IVP PRN (21:57)
[2020-04-08] MEDS ORDERED: Ondansetron 4 MG/2 ML VIAL IVP ONE (21:57)
[2020-04-08] MEDS ORDERED: Acetaminophen IV 1,000 MG/100 ML BAG ONE (22:00)
[2020-04-08] MEDS ORDERED: CefOXitin 1,000 MG VIAL ONE (22:01)
[2020-04-08] MEDS ORDERED: Isovue-300 50ML VIAL ONE (22:09)
[2020-04-08] MEDS ORDERED: *HR* PHENYLEPHRINE 1,000 MCG/10 ML SYRINGE IVP ONE (22:29)
[2020-04-08] MEDS ORDERED: Ondansetron 4 MG/2 ML VIAL ONE (22:30)
[2020-04-08] MEDS ORDERED: Dexamethasone 4 MG/ML VIAL ONE (22:30)
[2020-04-09] MEDS ORDERED: Naloxone 0.4 MG/ML INJ IVP PRN (00:28)
[2020-04-09] MEDS ORDERED: Ondansetron 4 MG/2 ML VIAL IVP PRN (00:28)
[2020-04-09] MEDS ORDERED: diazePAM 5 MG TABLET PO PRN (00:28)
[2020-04-09] MEDS ORDERED: Fluticasone Propionate Nasal 50 MCG/SPRAY BOTTLE NS PRN (00:28)
[2020-04-09] MEDS: Piperacillin/Tazobactam 3.375 GM in 0.9 % Sodium Chloride Mini Bag 100 ML IVPB SCH ×4 (00:41→18:16)
[2020-04-09 05:59] LABS: Basophils % 0.2 %; Immature Granulocytes % 0.5 % (0-4); Mean Corpuscular Hemoglobin 30.7 pg (28.0-33.3); Red Cell Distribution Width 13.1 % (11.5-14.5)
[2020-04-09 06:02] LABS: Hematocrit 38.7 % (37.5-50.1); Immature Platelets 3.5 % (1.1-6.1); Lymphocytes # 0.4 K/mcL (0.6-4.6); Mean Corpuscular HGB Conc 33.6 g/dL (31.6-35.5); Mean Corpuscular Volume 91.5 fL (83.0-100.0); Mean Platelet Volume 10.2 fL (9.4-12.4); Monocytes # 0.5 K/mcL (0.0-1.3); Monocytes % 5.2 %; Neutrophils # 8.9 K/mcL (1.6-8.9); Platelet Count 115 K/mcL (140-400); Red Blood Count 4.23 M/mcL (4.19-5.50); Segmented Neutrophils % 90.1 %; White Blood Count 9.9 K/mcL (4.3-11.1)
[2020-04-09 06:19] LABS: BUN/Creatinine Ratio 15 (6-26); Blood Urea Nitrogen 14 mg/dL (8-23); Calcium 8.2 mg/dL (8.6-10.3); Carbon Dioxide 27 mEq/L (23-29); Chloride 103 mEq/L (98-107); Glucose 178 mg/dL (70-105); Magnesium 1.7 mg/dL (1.6-2.6); Osmolality,Calculated 285 (280-300); Potassium 4.2 mEq/L (3.5-5.1); Sodium 135 mEq/L (136-145); eGFR For African Americans > 60 (> 60); eGFR For Non-African Americans > 60 (> 60)
[2020-04-09] MEDS: Valproic Acid 250 MG CAPSULE PO SCH ×2 (08:55→18:15)
[2020-04-09] MEDS ORDERED: Ketorolac 15 MG/ML VIAL IVP PRN (09:26)
[2020-04-10] MEDS: Piperacillin/Tazobactam 3.375 GM in 0.9 % Sodium Chloride Mini Bag 100 ML IVPB SCH ×2 (01:07→08:36)
[2020-04-10 07:14] LABS: Basophils % 0.3 %; Eosinophils # 0.1 K/mcL (0.0-0.6); Eosinophils % 1.1 %; Hematocrit 37.3 % (37.5-50.1); Hemoglobin 12.2 g/dL (12.9-16.9); Immature Granulocytes % 0.3 % (0-4); Immature Platelets 5.2 % (1.1-6.1); Lymphocytes % 13.1 %; Mean Corpuscular HGB Conc 32.7 g/dL (31.6-35.5); Mean Corpuscular Hemoglobin 30.2 pg (28.0-33.3); Mean Corpuscular Volume 92.3 fL (83.0-100.0); Monocytes # 0.6 K/mcL (0.0-1.3); Monocytes % 7.6 %; Neutrophils # 5.8 K/mcL (1.6-8.9); Platelet Count 111 K/mcL (140-400); Red Blood Count 4.04 M/mcL (4.19-5.50); Red Cell Distribution Width 12.9 % (11.5-14.5); Segmented Neutrophils % 77.6 %; White Blood Count 7.5 K/mcL (4.3-11.1)
[2020-04-10 07:31] LABS: Alanine Aminotransferase 42 Units/L (7-52); Albumin 3.4 g/dL (3.5-5.7); Albumin/Globulin Ratio 1.4 (1.1-2.2); Alkaline Phosphatase 38 Units/L (34-104); Aspartate Amino Transferase 42 Units/L (13-39); BUN/Creatinine Ratio 13 (6-26); Bilirubin,Total 0.7 mg/dL (0.3-1.0); Blood Urea Nitrogen 12 mg/dL (8-23); Calcium 8.7 mg/dL (8.6-10.3); Carbon Dioxide 34 mEq/L (23-29); Chloride 99 mEq/L (98-107); Globulin 2.4 g/dL (2.4-3.5); Glucose 119 mg/dL (70-105); Osmolality,Calculated 285 (280-300); Sodium 137 mEq/L (136-145); Total Protein 5.8 g/dL (6.4-8.9); eGFR For African Americans > 60 (> 60); eGFR For Non-African Americans > 60 (> 60)
[2020-04-10 07:33] LABS: BUN/Creatinine Ratio 13 (6-26); Blood Urea Nitrogen 12 mg/dL (8-23); Calcium 8.7 mg/dL (8.6-10.3); Carbon Dioxide 33 mEq/L (23-29); Chloride 99 mEq/L (98-107); Glucose 119 mg/dL (70-105); Magnesium 1.8 mg/dL (1.6-2.6); Osmolality,Calculated 285 (280-300); Sodium 137 mEq/L (136-145); eGFR For African Americans > 60 (> 60); eGFR For Non-African Americans > 60 (> 60)
[2020-04-10] MEDS: Valproic Acid 250 MG CAPSULE PO SCH (08:36)
[2020-04-10 10:32] VITALS: BP 106/64
== END 2020-04-10 12:11 | disposition home or self-care (01) | DRG 419 ==
LOC: EMEROOARM 22:28 → 3BNU 22:28 → SUATTDRO 04-08 00:22 → 3BNU 04-08 00:31 → SUATTDRO 04-09 14:05
PROVIDERS: ADMIT Internal Medicine; ATTEND Internal Medicine

== ENCOUNTER 2021-12-24 22:17 | Inpatient (IN) ==
[2021-12-24 23:42] LABS: Basophils % 0.3 %; Eosinophils % 0.1 %; Hematocrit 34.4 % (37.5-50.1); Hemoglobin 11.8 g/dL (12.9-16.9); Immature Granulocytes % 0.3 % (0-4); Immature Platelets 2.2 % (1.1-6.1); Lymphocytes # 0.3 K/mcL (0.6-4.6); Lymphocytes % 5.1 %; Mean Corpuscular HGB Conc 34.3 g/dL (31.6-35.5); Mean Corpuscular Hemoglobin 31.3 pg (28.0-33.3); Mean Corpuscular Volume 91.2 fL (83.0-100.0); Mean Platelet Volume 9.8 fL (9.4-12.4); Monocytes # 0.3 K/mcL (0.0-1.3); Neutrophils # 6.1 K/mcL (1.6-8.9); Platelet Count 116 K/mcL (140-400); Red Blood Count 3.77 M/mcL (4.19-5.50); Red Cell Distribution Width 12.7 % (11.5-14.5); Segmented Neutrophils % 90.2 %; White Blood Count 6.7 K/mcL (4.3-11.1)
[2021-12-24 23:55] LABS: Alanine Aminotransferase 18 Units/L (7-52); Albumin 4.3 g/dL (3.5-5.7); Albumin/Globulin Ratio 1.5 (1.1-2.2); Alkaline Phosphatase 67 Units/L (34-104); Aspartate Amino Transferase 32 Units/L (13-39); BUN/Creatinine Ratio 11 (6-26); Bilirubin,Total 0.5 mg/dL (0.3-1.0); Blood Urea Nitrogen 10 mg/dL (8-23); Calcium 9.6 mg/dL (8.6-10.3); Carbon Dioxide 29 mEq/L (23-29); Chloride 98 mEq/L (98-107); Globulin 2.8 g/dL (2.4-3.5); Glucose 133 mg/dL (70-105); Osmolality,Calculated 285 (280-300); Potassium 3.8 mEq/L (3.5-5.1); Sodium 137 mEq/L (136-145); Total Protein 7.1 g/dL (6.4-8.9); eGFR For African Americans > 60 (> 60); eGFR For Non-African Americans > 60 (> 60)
[2021-12-25 00:10] LABS: Bilirubin,Urine Negative (Negative); Blood,Urine Trace (Negative); Clarity,Urine Clear (Clear); Color,Urine Yellow (Yellow); Glucose,Urine (UA) Normal (Normal); Ketones,Urine 10 mg/dL (Negative); Leukocyte Esterase,Urine Negative (Negative); Mucus,Urine Few per lpf (None-Few); Nitrite,Urine Negative (Negative); PH,Urine 6.5 pH Units (5.0-8.0); Protein,Urine 50 mg/dL (Neg-Trace); Specific Gravity,Urine > 1.030 (1.010-1.025); Urobilinogen,Urine Normal (Normal); WBC,Urine 0-3 per hpf (0-3)
[2021-12-25 00:21] LABS: INR 1.2; Prothrombin Time 13.3 Seconds (9.4-12.1)
[2021-12-25] MEDS ORDERED: Ondansetron 4 MG/2 ML VIAL IVP PRN (01:19)
[2021-12-25] MEDS ORDERED: Melatonin 3 MG TABLET PO PRN (01:19)
[2021-12-25] MEDS ORDERED: Naloxone 0.4 MG/ML INJ IVP PRN (01:19)
[2021-12-25 03:05] LABS: Basophils % 0.4 %; Eosinophils % 0.2 %; Hematocrit 41.7 % (37.5-50.1); Immature Granulocytes % 0.3 % (0-4); Lymphocytes # 0.9 K/mcL (0.6-4.6); Lymphocytes % 10.1 %; Mean Corpuscular HGB Conc 35.5 g/dL (31.6-35.5); Mean Corpuscular Volume 90.1 fL (83.0-100.0); Mean Platelet Volume 9.5 fL (9.4-12.4); Monocytes # 0.8 K/mcL (0.0-1.3); Monocytes % 8.4 %; Neutrophils # 7.5 K/mcL (1.6-8.9); Platelet Count 153 K/mcL (140-400); Red Blood Count 4.63 M/mcL (4.19-5.50); Red Cell Distribution Width 12.8 % (11.5-14.5); Segmented Neutrophils % 80.6 %; White Blood Count 9.3 K/mcL (4.3-11.1)
[2021-12-25 03:13] LABS: Hemoglobin 14.8 g/dL (12.9-16.9)
[2021-12-25] MEDS: 0.9 % Sodium Chloride 1,000 ML IVC SCH ×2 (03:19→11:57)
[2021-12-25 03:26] LABS: BUN/Creatinine Ratio 11 (6-26); Blood Urea Nitrogen 10 mg/dL (8-23); Carbon Dioxide 29 mEq/L (23-29); Chloride 101 mEq/L (98-107); Glucose 124 mg/dL (70-105); Magnesium 1.6 mg/dL (1.6-2.6); Osmolality,Calculated 288 (280-300); Phosphorous 4.4 mg/dL (2.7-4.5); Potassium 3.8 mEq/L (3.5-5.1); Sodium 139 mEq/L (136-145); eGFR For African Americans > 60 (> 60); eGFR For Non-African Americans > 60 (> 60)
[2021-12-26 01:39] LABS: Hematocrit 40.7 % (37.5-50.1); Hemoglobin 13.7 g/dL (12.9-16.9); Mean Corpuscular HGB Conc 33.7 g/dL (31.6-35.5); Mean Corpuscular Volume 92.1 fL (83.0-100.0); Mean Platelet Volume 9.8 fL (9.4-12.4); Platelet Count 130 K/mcL (140-400); Red Blood Count 4.42 M/mcL (4.19-5.50); Red Cell Distribution Width 12.8 % (11.5-14.5); White Blood Count 8.1 K/mcL (4.3-11.1)
[2021-12-26 01:53] LABS: BUN/Creatinine Ratio 12 (6-26); Blood Urea Nitrogen 10 mg/dL (8-23); Calcium 8.8 mg/dL (8.6-10.3); Carbon Dioxide 29 mEq/L (23-29); Chloride 102 mEq/L (98-107); Glucose 108 mg/dL (70-105); Osmolality,Calculated 288 (280-300); Potassium 3.5 mEq/L (3.5-5.1); Sodium 139 mEq/L (136-145); eGFR For African Americans > 60 (> 60); eGFR For Non-African Americans > 60 (> 60)
[2021-12-26] MEDS ORDERED: Ondansetron 4 MG/2 ML VIAL ONE (08:22)
[2021-12-26] MEDS ORDERED: Lidocaine -MPF 2% 5 ML VIAL ONE (08:22)
[2021-12-26] MEDS ORDERED: *HR* Rocuronium Bromide 50 MG/5 ML VIAL ONE (08:22)
[2021-12-26] MEDS ORDERED: Lidocaine HCL 4 ML Topical Solution (Laryng-O-Jet Kit Sterile Pak) TP ONE (08:22)
[2021-12-26] MEDS ORDERED: *HR* Midazolam HCl 2 MG/2 ML VIAL ONE ×2 (08:23→09:22)
[2021-12-26] MEDS ORDERED: *HR* Propofol 200 MG/20 ML VIAL IVP ONE (08:23)
[2021-12-26] MEDS ORDERED: *HR* FentaNYL (PF) 100 MCG/2 ML VIAL ONE ×2 (08:23→09:59)
[2021-12-26] MEDS ORDERED: *HR* HYDROmorphone PF 0.5 MG/0.5 ML SYRINGE IVP PRN (08:48)
[2021-12-26] MEDS ORDERED: *HR* OxyCODONE Immed Rel 5 MG TABLET PO PRN (08:48)
[2021-12-26] MEDS ORDERED: CefOXitin 2,000 MG VIAL ONE (08:59)
[2021-12-26] MEDS ORDERED: cefOXitin 2,000 MG in 0.9 % Sodium Chloride 20 ML IVP ONE (09:00)
[2021-12-26] MEDS ORDERED: *HR* Succinylcholine 200 MG/10 ML VIAL IVP ONE (09:28)
[2021-12-26] MEDS ORDERED: EPHEDrine 50 MG/ML VIAL ONE (11:11)
[2021-12-26] MEDS ORDERED: Sugammadex Sodium 200 MG/2 ML VIAL IV ONE (11:38)
[2021-12-26] MEDS ORDERED: Naloxone 0.4 MG/ML INJ IVP PRN (12:55)
[2021-12-26] MEDS ORDERED: Ondansetron 4 MG/2 ML VIAL IVP PRN (12:55)
[2021-12-26] MEDS ORDERED: Melatonin 3 MG TABLET PO PRN (12:55)
[2021-12-26] MEDS ORDERED: diazePAM 5 MG TABLET PO PRN (14:39)
[2021-12-26] MEDS: Valproic Acid 250 MG CAPSULE PO SCH (17:59)
[2021-12-26] MEDS: GuaiFENesin Liq 200 MG/10 ML UDC PO PRN (22:07)
[2021-12-27] MEDS: GuaiFENesin Liq 200 MG/10 ML UDC PO PRN (05:01)
[2021-12-27 05:27] LABS: Hematocrit 39.1 % (37.5-50.1); Hemoglobin 13.3 g/dL (12.9-16.9); Mean Corpuscular Hemoglobin 30.8 pg (28.0-33.3); Mean Corpuscular Volume 90.5 fL (83.0-100.0); Mean Platelet Volume 9.9 fL (9.4-12.4); Platelet Count 126 K/mcL (140-400); Red Blood Count 4.32 M/mcL (4.19-5.50); Red Cell Distribution Width 12.2 % (11.5-14.5); White Blood Count 8.5 K/mcL (4.3-11.1)
[2021-12-27 05:57] LABS: BUN/Creatinine Ratio 14 (6-26); Blood Urea Nitrogen 11 mg/dL (8-23); Calcium 8.5 mg/dL (8.6-10.3); Carbon Dioxide 30 mEq/L (23-29); Chloride 101 mEq/L (98-107); Glucose 117 mg/dL (70-105); Osmolality,Calculated 286 (280-300); Potassium 3.8 mEq/L (3.5-5.1); Sodium 138 mEq/L (136-145); eGFR For African Americans > 60 (> 60); eGFR For Non-African Americans > 60 (> 60)
[2021-12-27] MEDS: Valproic Acid 250 MG CAPSULE PO SCH ×2 (09:27→17:57)
[2021-12-27] MEDS: Aspirin Enteric Coated 81 MG Tablet PO SCH (09:27)
[2021-12-27] MEDS ORDERED: *HR* HYDROcodone/Acet 5/325 mg TABLET PO PRN (14:07)
[2021-12-27] MEDS: Ampicillin/Sulbactam 1,500 MG in 0.9 % Sodium Chloride Mini Bag 100 ML IVPB SCH ×2 (15:18→20:47)
[2021-12-28] MEDS: Ampicillin/Sulbactam 1,500 MG in 0.9 % Sodium Chloride Mini Bag 100 ML IVPB SCH ×3 (02:38→08:33)
[2021-12-28 07:55] VITALS: O2SAT 92
[2021-12-28] MEDS: Aspirin Enteric Coated 81 MG Tablet PO SCH (08:34)
[2021-12-28] MEDS: Valproic Acid 250 MG CAPSULE PO SCH (08:34)
[2021-12-28 10:57] VITALS: BP 104/64; PULSE 74; TEMP 97.9
== END 2021-12-28 11:49 | disposition home health service (06) | DRG 326 ==
LOC: EMEROOARM 22:17 → 3ANU 22:17 → SUATTDRO 12-25 00:29 → 3ANU 12-25 01:07
PROVIDERS: ADMIT Internal Medicine; ATTEND Family Medicine